=== PATIENT | female | born 1935 | race Caucasian/White ===

== ENCOUNTER 2019-05-13 21:25 | Emergency (ER) | payer MEDICARE, MEDICAID, SELFPAY ==
[2019-05-13 21:31] VITALS: BP 179/80; PULSE 61; RESP 18; TEMP 36.4; O2SAT 93; BMI 28.8
--- NOTE | 2019-05-13 21:34 | CTR_ITS ---
PROCEDURE INFORMATION: Exam: CT Head Without Contrast Exam date and time: 05/13/2019 9:35 PM Age: 83 years old Clinical indication: Injury or trauma; Fall; Initial encounter; Blunt trauma (contusions or hematomas); Without loss of consciousness; Injury date: 05/13/2019; Injury details: PT fell from standing position, denies loc, denies pain, small laceration posterior left scalp TECHNIQUE: Imaging protocol: Computed tomography of the head without contrast. Total DLP: 786.43 mGy-cm Radiation optimization: All CT scans at this facility use at least one of these dose optimization techniques: automated exposure control; mA and/or kV adjustment per patient size (includes targeted exams where dose is matched to clinical indication); or iterative reconstruction. COMPARISON: CT head wo con* [id number] 06/30/2015 6:29 PM FINDINGS: Brain: There is mild volume loss and periventricular low-density compatible with small-vessel disease changes. 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 No acute hemorrhage, edema or mass effect. Ventricles: Normal. No ventriculomegaly. Bones/joints: Unremarkable. No acute fracture. Sinuses: Visualized sinuses are unremarkable. No fluid levels. Mastoid air cells: Visualized mastoid air cells are well aerated. Soft tissues: Unremarkable. CT/CT head wo con* [id number] IMPRESSION: No acute intracranial abnormality. Unchanged exam. Radiation Dose CTDIVOL = (mGy): DLP = 786.43 (mGy-cm)
--- NOTE | 2019-05-13 21:35 | W.ED.FALL ---
HPI - Fall General: Chief Complaint: Fall Stated Complaint: FELL History of Present Illness: HPI Narrative: Patient arrived via EMS for complaints of a fall at the [facility] just about 30 minutes ago. Patient has small laceration to the left parietal area. No active bleeding patient does have dementia. No complaints of loss consciousness or vomiting patient fell after getting out of bed and unsure what she struck complaint: fall Onset (ago): minute(s) Fall from: standing Fall witnessed: no Place fall occurred: [facility] Loss of consciousness: None Prolonged down time: no Symptoms prior to fall: none Context: tripped/slipped Location of injury: head Associated symptoms-after fall: Denies abdominal pain, chest pain or headache(s) Review of Systems Narrative: Laceration scalp and dementia Const: Denies: fever, chills or body aches Eyes: Denies: change in vision or blurry vision ENMT: Denies: throat pain or nasal congestion Card: Denies: chest pain or shortness of breath on exertion Resp: Denies: shortness of breath, productive cough or non-productive cough GI: Denies: abdominal pain, nausea or vomiting Musc: Denies: extremity pain Skin/Breast: Denies: rash Neuro: Denies: headache Psych: Denies: anxiety or depression Luis/Lymph: Denies: easy bruising PFSH ED PFSH: Statuses (acute, chronic, etc) shown below reflect problem list status as previously entered and may not be historically accurate Social History Smoking and tobacco status: unknown if ever smoked Physical Exam Const: COMMON NORMALS: no apparent distress, average body habitus and oriented x3 HENMT: COMMON NORMALS: normocephalic HEAD & SCALP: normal to inspection and normocephalic FACE & SINUS: normal facial exam Eye: COMMON NORMALS: conjunctivae normal GENERAL EYE: normal appearance of both eyes CONJUNCTIVA: Yes conjunctivae normal Neck/C-Spine: COMMON NORMALS: no JVD Chest: COMMONS NORMALS: inspection of chest normal Resp: COMMON NORMALS: normal respiratory effort and clear to auscultation bilaterally AUSCULTATION: clear to auscultation bilaterally Cardio: COMMON NORMALS: no JVD, regular rate and regular rhythm RATE: regular rate RHYTHM: regular rhythm GI: COMMON NORMALS: normal to inspection, nondistended, normoactive bowel sounds Extremity: COMMON NORMALS: normal to inspection and full ROM Neuro: COMMON NORMALS: oriented x3 Skin: SKIN IMAGES (FEMALE): 1. 3mm laceration Procedures Laceration Laceration 1: Site: scalp Side (If applicable): left Size (cm): 0.5 Description: linear Depth: simple, single layer Skin layer closed with: other (2 toy) Course Vital Signs: Vital signs: Vital Signs Temperature 97.5 F L 05/13/19 21:31 Pulse Rate 61 05/13/19 21:31 Respiratory Rate 18 05/13/19 21:31 Blood Pressure 179/80 05/13/19 21:31 Pulse Oximetry 93 05/13/19 21:31 Discharge Plan Discharge Patient Disposition: [facility] Clinical Impression: Laceration Condition: Stable Discharge Orders: Discharge Order (Routine); Ordered 05/13/19 Ordered By: Brice Elder Referrals: Jefry Hill MD [Primary Care Provider] - Discharge Diet: Usual diet Discharge Activity: Resume usual activity Patient Instructions: Scalp Laceration Activity Restrictions/Additional Instructions: Have toy removed in 7 days keep wound clean and dry. Return if symptoms worsen. 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
[2019-05-13 22:59] VITALS: BP 156/78; PULSE 67; RESP 20; O2SAT 91
== END 2019-05-13 22:57 ==
PROVIDERS: Emergency Provider Nurse Practitioner Family; Family Provider Urology; PCP Urology
DX: S01.01XA Laceration without foreign body of scalp, initial encounter (principal); W19.XXXA Unspecified fall, initial encounter; Y92.129 Unspecified place in nursing home as the place of occurrence of the external cause
CPT/HCPCS: 12001; 70450; 99281